=== PATIENT | female | born 1940 | race Caucasian/White ===

== ENCOUNTER 2017-07-24 08:22 | Day surgery (SDC) | payer MEDICARE, OTHER ==
--- NOTE | 2017-07-17 01:09 | HP ---
CC: Dr. Jordy Shrestha * ADMISSION HISTORY AND PHYSICAL: DATE OF ADMISSION: 07/24/17 ATTENDING SURGEON: Dr. Rubens Monroy.* (DICTATED BY RICHAR JAQUEZ) CHIEF COMPLAINT: Chronically draining abdominal wall abscess. HISTORY OF PRESENT ILLNESS: This is a 77-year-old female with multiple medical problems, who has undergone multiple previous abdominal surgeries including open repair of ventral incisional hernia with mesh over 10 years ago. Apparently, in February of this year, the patient began to notice a bulge in the lower abdomen. CT scan at that time showed collections on either side of the midline. An aspiration was performed, which grew out Pseudomonas, which was sensitive to Cipro. Ultimately, an incision and drainage was performed with subsequent packing of the wound. Despite all these efforts, the wound has remained nonhealing with ongoing drainage with most recent culture again growing Pseudomonas, sensitive to Cipro. A CT scan of the abdomen and pelvis was performed on 06/26/17 showing a small fluid collection to the right of the midline measuring 1.7 x 1.[address] Monroy has seen the patient a number of times in the past 5 months and felt that more aggressive approach was required to allow resolution and healing of this wound. The patient denies any pain related to the wound. She denies any fevers or chills. The patient understands the indications for surgery, the risks, benefits and alternatives and the expected perioperative course. She was prescribed Cipro 500 mg b.i.d. to start 1 week prior to surgery. She would like to proceed as scheduled with exploration and debridement of abdominal wall abscess. PAST MEDICAL HISTORY: 1. Chronic back pain. 2. Hypertension. 3. Hypothyroidism. 4. Anxiety. 5. Insomnia. 6. Osteoporosis. 7. Breast cancer. 8. Nephrolithiasis. 9. Hyperparathyroidism. 10. Cholelithiasis. PAST SURGICAL HISTORY: Include exploratory laparotomy for small bowel obstruction, subsequent abdominal hernia repair with mesh; parathyroidectomy x2 (both on the left side) with persistent hyperparathyroidism, maintained on Sensipar; status post resection of the meningioma of the spine; appendectomy for ruptured appendicitis; right hemithyroidectomy for benign disease; right breast lumpectomy for a breast cancer, also treated with radiation therapy and chemotherapy with no evidence of recurrence; ORIF of a left ankle fracture; ESWL for nephrolithiasis. No reported surgical or anesthesia complications. CURRENT MEDICATIONS: 1. Nexium (recently switched to another presumed PPI) once daily. 2. Levothyroxine 50 mcg once daily. 3. Enalapril 5 mg b.i.d. 4. Sensipar 30 mg 3 tablets for a total of 90 mg once daily. 5. Metoprolol succinate extended release 25 mg once daily. 6. Lorazepam 1 mg t.i.d. 7. Ambien 10 mg q.h.s. 8. Hydrocodone/acetaminophen 10/325 up to 5 pills per day p.r.n. for back pain. 9. Lidocaine patch 5% two patches per day p.r.n. 10. Prolia 60 mg twice yearly for osteoporosis. DRUG ALLERGIES: None known. FAMILY HISTORY: Negative for anesthesia problems, bleeding, or clotting disorders. SOCIAL HISTORY: The patient is . She is a smoker of 1-pack per day for the past 60 years. She drinks one glass of wine per day. She denies other recreational drug use. REVIEW OF SYSTEMS: General: No recent constitutional symptoms or acute illnesses other than described in the HPI. Cardiovascular: No chest pain, palpitations, history of TX or angina. Respiratory: Smoking history as noted. No shortness of breath. GI: No problems reported related to eating. No nausea or vomiting. No change in her bowels. : No recent problems reported. Endocrine: She is on thyroid replacement and Sensipar for her hyperparathyroidism. No diabetes. Neuro/Psych: No additions to above. The remainder of review of systems is negative. PHYSICAL EXAMINATION GENERAL: Well-nourished, but petite elderly female, in no acute distress. She is somewhat anxious. VITAL SIGNS: Height 57 inches, weight 105 pounds. Blood pressure 154/100, pulse 54, respirations 16. HEENT: Pupils are equal, round, and reactive. EOMs intact. No conjunctival pallor. Oropharynx: Full upper denture, remaining teeth in good repair. No intraoral lesions. NECK: Well-healed lower neck incision from prior surgeries. No palpable thyromegaly or masses. No palpable lymphadenopathy. LUNGS: Clear to auscultation. No rales or wheezes. HEART: Regular rate and rhythm. No murmur appreciated. ABDOMEN: Lower midline incision with small open wound with small amount of green- haines drainage on the dressing. There is no tenderness to palpation. There is no additional expressible drainage. The wound was not probed today. No palpable masses or organomegaly. GENITALIA: Not done. RECTAL: Not done. BACK: No spinous process or CVA tenderness. EXTREMITIES: No edema. NEUROLOGICAL: Grossly intact. SKIN: Warm and dry. No suspicious rashes or lesions noted. IMPRESSION: Nonhealing chronically-infected abdominal wall abscess. PLAN: Exploration and debridement of abdominal wall abscess. RICHAR JAQUEZ [id number]/[facility] #: [id number] [facility] CAMPUSJamie
[~2017-07-24 08:22] MED LIST: Buffered Lidocaine 0.9% SYRIN* 5 ML/SYR SYRINGE INTRADERM ONE; Metoclopramide IV* 5 MG/ML 2 ML VIAL IV SLOW PU ONE; Sodium Citrate/Citric Acid* 15 ML UDC PO ONE
[2017-07-24] MEDS ORDERED: Heparin VIAL(*) 5000 UNITS/ML VIAL (FIVE THOUSAND) ONE (08:55)
[2017-07-24] MEDS ORDERED: Levofloxacin 750 MG IVPREMIX(* 750 MG/150 ML BAG ONE (08:55)
[2017-07-24] MEDS ORDERED: Metoclopramide IV* 5 MG/ML 2 ML VIAL ONE (08:55)
[2017-07-24] MEDS ORDERED: Sodium Citrate/Citric Acid* 15 ML UDC ONE (08:55)
[2017-07-24] MEDS ORDERED: Lidocaine 2% PF * 5 ML VIAL ONE (10:37)
[2017-07-24] MEDS ORDERED: fentaNYL* 50 MCG/ML 2 ML VIAL (100 MCG VIAL) ONE ×2 (10:37→13:39)
[2017-07-24] MEDS ORDERED: Propofol* 10 MG/ML 20 ML BTL IV PUSH ONE (10:37)
[2017-07-24] MEDS ORDERED: Midazolam* 1 MG/ML 2 ML VIAL (2 MG) ONE (10:37)
[2017-07-24] MEDS ORDERED: HYDROmorphone INJ* 1 MG/ML CARPUJECT SYRINGE ONE (12:17)
[2017-07-24] MEDS ORDERED: PROCHLORPERAZINE INJ 5 MG/ML 2 ML VIAL IV PRN (12:32)
[2017-07-24] MEDS ORDERED: HYDROmorphone INJ* 1 MG/ML CARPUJECT SYRINGE IV PRN (12:32)
[2017-07-24] MEDS ORDERED: Acetaminophen TAB* 325 MG PO PRN (12:32)
[2017-07-24] MEDS ORDERED: Naloxone* 0.4 MG/ML 1 ML VIAL IV PRN (12:32)
[2017-07-24] MEDS ORDERED: Ibuprofen TAB* 400 MG PO PRN (12:32)
[2017-07-24] MEDS ORDERED: Ondansetron INJ* 2 MG/ML VIAL IV PRN (12:32)
[2017-07-24] MEDS ORDERED: Acetaminophen TAB* 325 MG ONE (13:36)
[2017-07-24] MEDS: fentaNYL* 50 MCG/ML 2 ML VIAL (100 MCG VIAL) IV PRN ×2 (13:40→13:48)
[2017-07-24] MEDS ORDERED: oxyCODONE TAB* 5 MG TAB ONE (13:45)
[2017-07-24] MEDS ORDERED: Ibuprofen TAB* 400 MG ONE (13:45)
[2017-07-24] MEDS: oxyCODONE TAB* 5 MG TAB PO PRN ×2 (13:46→14:00)
[2017-07-24] MEDS ORDERED: HYDROmorphone INJ* 2 MG/ML CARPUJECT SYRINGE ONE (15:10)
[2017-07-24 15:54] VITALS: BP 143/77
--- NOTE | 2017-07-26 02:39 | OP ---
CC: Dr. Jordy Shrestha * DATE OF OPERATION: 07/24/17 - [facility] DATE OF : 36 SURGEON: Rubens Monroy MD. SERVICE ORDER CLERK: Ida Andersen NP. ANESTHESIOLOGIST: Rina Mcgovern MD. ANESTHESIA: General anesthetic. PRE-OP DIAGNOSIS: Chronically-infected abdominal wound. POST-OP DIAGNOSIS: Chronically-infected abdominal wound. OPERATIVE PROCEDURE: Excision and debridement of chronic abdominal wound and excision of previous mesh with primary closure. DESCRIPTION OF PROCEDURE: The patient was supine on the operating room table. After adequate general anesthetic, compression stockings, Erin Hugger warmer and intravenous antibiotics, the abdomen was prepped with antiseptic, draped in a sterile fashion. The chronic open granulating wound was explored with a probe and seemed to extend proximally 2 cm in depth, not very much lateral undermining to it. An elliptical incision transversely was created that was approximately 2 x 4 cm in size and the dissection was carried down using a probe as a guide until I am able to undermine the entire area of the chronic draining cavity. This took me through the mesh and in the plane underneath the mesh, between the mesh and the fibrous layer on the omentum, there was pus coming out from that space. So, it was decided that the entirety of the mesh was best to be removed, so the mesh was painstakingly dissected free from its adherence underneath the muscle and it is removed in its entirety. The omentum was identified subjacent to this area and has a fibrous layer on it where it had been adherent to the mesh. There were no undrained collections or pockets that I can identify. The muscle was opened transversely for this purpose and was then closed with a continuous running suture of #1 Vicryl. This was done after irrigation of every layer. The adipose was tucked back down using 3-0 Vicryl. The skin was loosely approximated with surgical clips. Three open areas were maintained and 1/2 inch packing gauze was used to pack into these 3 areas. Each one goes to a depth of about 3 to 4 cm. Bulky gauze bandage was placed. She tolerated this well and was awakened and brought to recovery in good condition. There were no drains placed. Specimens were the abdominal wall infected sinus tract, the abdominal mesh and a culture was taken of the purulent material that was underneath the mesh. [id number]/[facility] #: [id number] MTDD
== END 2017-07-24 16:33 | disposition home or self-care (01) ==
LOC: OR 08:22
PROVIDERS: ATTEND Surgery
DX: T85.79XA Infection and inflammatory reaction due to other internal prosthetic devices, implants and grafts, initial encounter (principal); T81.4XXA Infection following a procedure, initial encounter; L02.211 Cutaneous abscess of abdominal wall; I10 Essential (primary) hypertension; E03.9 Hypothyroidism, unspecified; E21.3 Hyperparathyroidism, unspecified; Z79.899 Other long term (current) drug therapy; M81.0 Age-related osteoporosis without current pathological fracture; F41.9 Anxiety disorder, unspecified; G47.00 Insomnia, unspecified; K80.20 Calculus of gallbladder without cholecystitis without obstruction; K21.9 Gastro-esophageal reflux disease without esophagitis; Z85.3 Personal history of malignant neoplasm of breast; Z72.0 Tobacco use
CPT/HCPCS: 87070; 87205; 88300; 88304; A9270-GY; J1170; J1644; J2250; J2704; J2765; J3010

== ENCOUNTER 2018-07-05 12:23 | Emergency (ER) | payer MEDICARE, OTHER ==
[2018-07-05 12:47] VITALS: BP 189/104
--- NOTE | 2018-07-05 13:07 | UC ---
Complaint Female HPI - HPI Summary HPI Summary: burning and frequency with urination since yesterday - History Of Current Complaint Chief Complaint: UCGU Stated Complaint: BURNING URINATION Time Seen by Provider: 07/05/18 12:55 Hx Obtained From: Patient ?: No Onset/Duration: Sudden Onset, Lasting Days - 1 Severity Initially: Moderate Severity Currently: Severe Pain Intensity: 7 Aggravating Factor(s): Urination - Allergies/Home Medications Allergies/Adverse Reactions: Allergies Allergy/AdvReac Type Severity Reaction Status Date / Time garlic Allergy Unknown Unknown Verified 07/05/18 12:47 Reaction Details Home Medications: Home Medications Ibandronate (Nf) [Boniva (NF)] 3 mg IV DAILY WITH MEAL 07/05/18 [History Confirmed 07/05/18] Lidocaine [Lidocaine Pain Relief] 1 each TP DAILY WITH MEAL 07/05/18 [History Confirmed 07/05/18] Zolpidem Tartrate [Ambien] 10 mg PO DAILY WITH MEAL 07/05/18 [History Confirmed 07/05/18] PMH/Surg Hx/FS Hx/Imm Hx Previously Healthy: Yes - Surgical History Surgical History: Yes Surgery Procedure, Year, and Place: Lt ANKLE - FX - W/ HARDWARE. THYROIDECTOMY - PARTIAL. PARATHRYOID - PARTIAL. HEMANGIOMA - SPINE. HERNIA. ABD WALL ABCSESS. APPENDECTOMY. ABD EXPLORATORY. Rt LUMPECTOMY - CANCER ( CHEMO & RADIATION ) -1987. KIDNEY STONE. COLON RESECTION - INTESTINAL BLOCKAGE - Family History Known Family History: Positive: Cardiac Disease - Social History Alcohol Use: Daily Alcohol Amount: 1 drink/day Substance Use Type: None Smoking Status (MU): Current Every Day Smoker Type: Cigarettes Amount Used/How Often: 1 PPD smoked all her life Length of Time of Smoking/Using Tobacco: 50 YRS Have You Smoked in the Last Year: Yes When Did the Patient Quit Smoking/Using Tobacco: 50 YRS. Household Exposure Type: Cigarettes - Immunization History Most Recent Influenza Vaccination: FALL 2012 Most Recent Tetanus Shot: UNKNOWN Most Recent Pneumonia Vaccination: UNKNOWN Review of Systems All Other Systems Reviewed And Are Negative: Yes Gastrointestinal: Positive: Abdominal Pain Genitourinary: Positive: Frequency, Urgency Physical Exam Triage Information Reviewed: Yes Appearance: Well-Appearing, Pain Distress, Thin Vital Signs: Initial Vital Signs Temp 98.4 F 07/05/18 12:40 Pulse 53 05/19/19 12:40 Resp 20 07/05/18 12:40 BP 189/104 07/05/18 12:40 Pulse Ox 100 07/05/18 12:40 Eye Exam: Normal Complaint Female Dx - Course Course Of Treatment: hx obtained, exam performed ,meds reviewed, UA obtained, treated for UTI - Differential Dx/Diagnosis Differential Diagnosis/HQI/PQRI: Urinary Tract Infection Provider Diagnosis: UTI (urinary tract infection) Discharge - Sign-Out/Discharge Documenting (check all that apply): Patient Departure All imaging exams completed and their final reports reviewed: No Studies - Discharge Plan Condition: Stable Disposition: HOME Prescriptions: Nitrofurantoin Monohyd/M-Cryst [Macrobid 100 mg Capsule] 100 mg PO BID #14 cap Patient Education Materials: Urinary Tract Infection in Women (ED) Referrals: Jordy Shrestha MD [Primary Care Provider] - Additional Instructions: 1. Take the medication as prescribed. 2. Increse fluid intake and get plenty of rest. - Billing Disposition and Condition Condition: STABLE Disposition: Home
== END 2018-07-05 13:18 | disposition home or self-care (01) ==
LOC: UCEAST 12:23
DX: N39.0 Urinary tract infection, site not specified (principal); Z87.891 Personal history of nicotine dependence
CPT/HCPCS: 81003; 87077; 87086; 87186; 99212; G0463

== ENCOUNTER 2022-04-27 09:44 | Inpatient (IN) ==
[2022-04-27 11:15] LABS: ABS Lymphocytes 0.7 10^3/ul (1.0-4.8); ABS Neutrophils 7.7 10^3/ul (1.5-7.7); Hematocrit 37 % (35-47); Hemoglobin 12.5 g/dL (12.0-16.0); Lymphocyte % 7.2 %; Mean Corpuscular HGB Conc 34 g/dL (31-36); Mean Corpuscular Hemoglobin 36 pg (27-31); Mean Corpuscular Volume 106 fL (80-97); Mean Platelet Volume 9.2 fL (7.4-10.4); Platelet Count 161 10^3/uL (150-450); Red Blood Count 3.49 10^6 /uL (3.70-4.87); Red Cell Distribution Width 13 % (10-15); White Blood Count 9.4 10^3/uL (3.5-10.8)
[2022-04-27 11:54] LABS: Albumin 3.6 g/dL (3.2-5.2); Albumin/Globulin Ratio 1.6 (1-3); C Reactive Protein 164.27 mg/L (<8.01); Calcium 7.9 mg/dL (8.6-10.3); Creatinine, Serum 0.68 mg/dL (0.51-0.95); Globulin 2.3 g/dL (2-4); Potassium 3.9 mmol/L (3.5-5.0); Total Protein 5.9 g/dL (6.4-8.9); eGFR CKD-EPI 85.8 (>60)
[2022-04-27 12:39] LABS: Erythrocyte Sed Rate 30 mm/Hr (0-29)
[2022-04-27 12:51] LABS: High Sensitivity Troponin 1 Hr 13 pg/mL (<15)
[2022-04-27] MEDS ORDERED: Iodixanol (CONTRAST) 320 MG/ML 100 ML SDV IV ONE (13:06)
[2022-04-27 13:47] LABS: Urine Appearance Clear; Urine Bilirubin Negative (Negative); Urine Blood Negative (Negative); Urine Color Yellow; Urine Glucose Negative (Negative); Urine Ketones Negative (Negative); Urine Nitrite Negative (Negative); Urine Protein 1+(30 mg/dL) (Negative); Urine Specific Gravity 1.017 (1.002-1.030); Urine Urobilinogen Negative (Negative)
[2022-04-27 13:51] LABS: Urine Bacteria Absent (Absent); Urine Red Blood Cell Trace(0-2/hpf) (Absent); Urine Squamous Epithelial Cell Present (Absent); Urine White Blood Cell Trace(0-5/hpf) (Absent)
[2022-04-27] MEDS ORDERED: HYDROcodone/ACETAMIN 5/325 mg TAB PO ONE (17:20)
[2022-04-27 17:32] LABS: Body Fluid Appearance Cloudy; Body Fluid Color Yellow; Body Fluid Source Synovial Fluid
[2022-04-27 17:47] LABS: Body Fluid WBC 96540 /mcL
[2022-04-27 18:08] LABS: Body Fluid Mono 2 %; Body Fluid Total Cells Counted 200
[2022-04-27] MEDS ORDERED: Vancomycin per Pharmacy 1 EA NOTE FOLLOW UP PRN (18:41)
[2022-04-27] MEDS ORDERED: Vancomycin 1,500 MG in NS 0.9% 250 ml 250 ML IVPB ONE (19:00)
[2022-04-27] MEDS: cefTRIAXone 1 gm/50 mL D5W 1 GM/50 ML BAG IV SCH (19:52)
[2022-04-27] MEDS ORDERED: Vancomycin 1000 MG in NS 0.9% 250 ML IVPB ONE (20:30)
[2022-04-27] MEDS: NS 0.9% 1000 ml BAG 1,000 ML IV SCH (21:15)
[2022-04-28] MEDS ORDERED: Morphine 2 MG/ML SYRINGE IV PRN (04:14)
[2022-04-28 07:53] LABS: ABS Lymphocytes 0.9 10^3/ul (1.0-4.8); ABS Monocytes 0.5 10^3/ul (0-0.8); ABS Neutrophils 5.4 10^3/ul (1.5-7.7); Eosinophil % 0.7 %; Hematocrit 37 % (35-47); Hemoglobin 12.6 g/dL (12.0-16.0); Lymphocyte % 13.4 %; Mean Corpuscular HGB Conc 34 g/dL (31-36); Mean Corpuscular Hemoglobin 37 pg (27-31); Mean Corpuscular Volume 108 fL (80-97); Mean Platelet Volume 9.7 fL (7.4-10.4); Platelet Count 156 10^3/uL (150-450); Red Blood Count 3.37 10^6 /uL (3.70-4.87); Red Cell Distribution Width 14 % (10-15)
[2022-04-28 08:29] LABS: C Reactive Protein 214.21 mg/L (<8.01); Calcium 7.6 mg/dL (8.6-10.3); Creatinine, Serum 0.55 mg/dL (0.51-0.95); Potassium 3.8 mmol/L (3.5-5.0); eGFR CKD-EPI 90.3 (>60)
[2022-04-28] MEDS ORDERED: Buffered Lidocaine 1% SYRIN 1 ml INTRADERM ONE (10:13)
[2022-04-28] MEDS ORDERED: Lidocaine 2% PF 5 ML VIAL ONE (10:31)
[2022-04-28] MEDS ORDERED: Midazolam 2 mg/2 ml VIAL 1 mg/ml 2 ml VIAL (2 mg) ONE (10:31)
[2022-04-28] MEDS ORDERED: fentaNYL 100 mcg/2 ml 50 MCG/ML VIAL ONE ×3 (10:31→12:32)
[2022-04-28] MEDS ORDERED: Propofol 10 MG/ML 20 ML BTL ONE (10:32)
[2022-04-28] MEDS ORDERED: Succinylcholine 200 mg VIAL 20 mg/ml 10 ml VIAL (200 mg) ONE (10:39)
[2022-04-28] MEDS ORDERED: Labetalol IV 5 MG/ML 20 ml VIAL ONE (10:54)
[2022-04-28] MEDS ORDERED: Lactated Ringers 1000 ml BAG 1,000 ML IV SCH (11:00)
[2022-04-28] MEDS ORDERED: Naloxone 0.4 mg VIAL 0.4 mg/ml 1 ml VIAL IV PRN (11:08)
[2022-04-28] MEDS ORDERED: Ondansetron 4 mg VIAL 2 MG/ML 2 ml VIAL IV PRN (11:08)
[2022-04-28] MEDS: Vancomycin 750 MG in NS 0.9% 250 ML IVPB SCH ×2 (11:08→22:46)
[2022-04-28] MEDS ORDERED: Acetaminophen IV 1 GM/100ML 1,000 MG/100 ML BAG IV ONE (11:14)
[2022-04-28] MEDS ORDERED: Ondansetron 4 mg VIAL 2 MG/ML 2 ml VIAL ONE (11:20)
[2022-04-28] MEDS: fentaNYL 100 mcg/2 ml 50 MCG/ML VIAL IV PRN ×5 (12:02→12:33)
[2022-04-28] MEDS: HYDROcodone/Acetamin 10/325 TAB (NF) PO PRN ×2 (13:39→20:39)
[2022-04-28] MEDS: Lidocaine PATCH 5% PATCH TRANSDERM SCH (13:41)
[2022-04-28] MEDS: NS 0.9% 1000 ml BAG 1,000 ML IV SCH (16:05)
[2022-04-28] MEDS ORDERED: cefTRIAXone 1 GM ONETIME (ADVAN) IVPB SCH (18:50)
[2022-04-28] MEDS: cefTRIAXone 1 gm/50 mL D5W 1 GM/50 ML BAG IV SCH (19:32)
[2022-04-29] MEDS: HYDROcodone/Acetamin 10/325 TAB (NF) PO PRN ×4 (02:05→22:35)
[2022-04-29] MEDS ORDERED: Vancomycin Trough Check NOTE FOLLOW UP ONE (08:30)
[2022-04-29] MEDS: Vancomycin 750 MG in NS 0.9% 250 ML IVPB SCH (10:05)
[2022-04-29] MEDS: Lidocaine PATCH 5% PATCH TRANSDERM SCH (10:08)
[2022-04-29] MEDS ORDERED: Vancomycin per Pharmacy 1 EA NOTE FOLLOW UP SCH (15:00)
[2022-04-29] MEDS: NS 0.9% 1000 ml BAG 1,000 ML IV SCH (18:38)
[2022-04-29] MEDS ORDERED: cefTRIAXone 1 gm/50 mL D5W 1 GM/50 ML BAG IV SCH (21:00)
[2022-04-30] MEDS: HYDROcodone/Acetamin 10/325 TAB (NF) PO PRN ×4 (02:40→18:35)
[2022-04-30 07:13] LABS: ABS Eosinophils 0.1 10^3/ul (0-0.6); ABS Monocytes 0.6 10^3/ul (0-0.8); ABS Neutrophils 4.4 10^3/ul (1.5-7.7); Eosinophil % 1.4 %; Hematocrit 30 % (35-47); Hemoglobin 10.4 g/dL (12.0-16.0); Lymphocyte % 16.7 %; Mean Corpuscular HGB Conc 34 g/dL (31-36); Mean Corpuscular Hemoglobin 37 pg (27-31); Mean Corpuscular Volume 108 fL (80-97); Mean Platelet Volume 9.6 fL (7.4-10.4); Nucleated Red Blood Cells % 0.1; Platelet Count 130 10^3/uL (150-450); Red Cell Distribution Width 14 % (10-15); White Blood Count 6.2 10^3/uL (3.5-10.8)
[2022-04-30 07:34] LABS: C Reactive Protein 205.81 mg/L (<8.01); Calcium 6.7 mg/dL (8.6-10.3); Creatinine, Serum 0.59 mg/dL (0.51-0.95); Potassium 3.4 mmol/L (3.5-5.0); eGFR CKD-EPI 88.8 (>60)
[2022-04-30] MEDS ORDERED: Potassium Chlor 20 meq TAB.ER PO ONE (07:38)
[2022-04-30] MEDS: Lidocaine PATCH 5% PATCH TRANSDERM SCH (08:30)
[2022-04-30] MEDS: Nicotine PATCH 14 MG/24 HR PATCH TRANSDERM SCH (18:19)
[2022-05-01] MEDS: HYDROcodone/Acetamin 10/325 TAB (NF) PO PRN ×4 (01:02→14:00)
[2022-05-01 06:33] LABS: ABS Eosinophils 0.1 10^3/ul (0-0.6); ABS Monocytes 0.4 10^3/ul (0-0.8); ABS Neutrophils 3.3 10^3/ul (1.5-7.7); Eosinophil % 2.4 %; Hematocrit 31 % (35-47); Hemoglobin 10.7 g/dL (12.0-16.0); Lymphocyte % 20.9 %; Mean Corpuscular HGB Conc 34 g/dL (31-36); Mean Corpuscular Hemoglobin 37 pg (27-31); Mean Corpuscular Volume 108 fL (80-97); Mean Platelet Volume 9.8 fL (7.4-10.4); Platelet Count 143 10^3/uL (150-450); Red Cell Distribution Width 14 % (10-15)
[2022-05-01 06:51] LABS: Calcium 6.8 mg/dL (8.6-10.3); Creatinine, Serum 0.51 mg/dL (0.51-0.95); Potassium 3.6 mmol/L (3.5-5.0)
[2022-05-01] MEDS: Lidocaine PATCH 5% PATCH TRANSDERM SCH (09:00)
[2022-05-01] MEDS: Nicotine PATCH 14 MG/24 HR PATCH TRANSDERM SCH (09:00)
[2022-05-01 11:15] VITALS: BP 115/65
[2022-05-01 15:08] LABS: B. burgdorferi PCR Negative (Negative); B. garinii/B. afzellii PCR Negative (Negative); Lyme Disease Source SYNOVIAL FLUID
== END 2022-05-01 17:05 | disposition home or self-care (01) | DRG 488 ==
LOC: ED 09:44 → EDHOLD 09:44 → SUATTDRO 17:29 → SSU 04-28 13:22
PROVIDERS: ADMIT Internal Medicine Hematology & Oncology; ATTEND Internal Medicine